=== PATIENT | male | born 1970 | race Caucasian/White ===

== ENCOUNTER 2016-07-07 09:27 | Emergency (ER) | payer OTHER ==
[~2016-07-07] VITALS: Ht 177.8 cm; Wt 113.4 kg
[2016-07-07] MEDS ORDERED: IV NS 0.9% 500 ML BAG IV ONE (10:00)
[2016-07-07] MEDS ORDERED: KETOROLAC TROMETHAMINE INJ 30 MG/ML VIAL IV ONE (10:00)
[2016-07-07] MEDS ORDERED: ONDANSETRON HCL/PF 4 MG/2 ML VIAL IVP ONE (10:00)
[2016-07-07] MEDS ORDERED: HYDROMORPHONE INJ 2 MG/ML DISP.SYRIN IV ONE (10:00)
[2016-07-07] MEDS ORDERED: HYDROMORPHONE 1 MG/1 ML DISP.SYRIN ONE (10:02)
[2016-07-07] MEDS ORDERED: ONDANSETRON HCL/PF 4 MG/2 ML VIAL ONE (10:02)
[2016-07-07] MEDS ORDERED: IV NS 0.9% 1,000 ML ONE (10:02)
[2016-07-07] MEDS ORDERED: IV SET PRIMARY PUMP SET 1 EA INFUS.SET MC ONE (10:02)
[2016-07-07] MEDS ORDERED: KETOROLAC TROMETHAMINE 15 MG/ML VIAL ONE (10:02)
[2016-07-07 10:04] LABS: BASOPHILS # (AUTO) 0.1 /CMM (0.0-0.2); BASOPHILS % (AUTO) 0.7 % (0.0-2.0); DIFF TOTAL % 100 %; EOSINOPHILS # (AUTO) 0.1 /CMM (0.0-0.7); EOSINOPHILS % (AUTO) 0.9 % (0.0-6.0); HEMATOCRIT 46 % (39-51); HEMOGLOBIN 15.4 g/dL (13.5-17.5); LYMPHOCYTES # (AUTO) 1.5 /CMM (0.8-4.8); LYMPHOCYTES % (AUTO) 14.2 % (20.0-44.0); MEAN CORPUSCULAR HEMOGLOBIN 29 PG (26.0-33.0); MEAN CORPUSCULAR HGB CONC 34 g/dl (31.0-36.0); MEAN CORPUSCULAR VOLUME 85 fL (80-96); MONOCYTES # (AUTO) 0.5 /CMM (0.1-1.30); MONOCYTES % (AUTO) 4.4 % (2.0-12.0); NEUTROPHILS # (AUTO) 8.4 /CMM (1.8-8.9); NEUTROPHILS % (AUTO) 79.8 % (43.0-81.0); PLATELET COUNT (AUTO) 212 /CMM (150-450); WHITE BLOOD COUNT (AUTO) 10.6 K/uL (4.3-11.0)
[2016-07-07 10:08] LABS: KETONES,URINE Negative (NEGATIVE); LEUKOCYTE ESTERASE ,URINE Negative (NEGATIVE); PH,URINE 8.5 (5.0-8.0)
[2016-07-07 10:11] LABS: ADD UA MICROSCOPIC YES
[2016-07-07 10:14] LABS: CALCIUM, SERUM 9.2 mg/dL (8.5-10.1); CREATININE 1.3 mg/dL (0.6-1.3); POTASSIUM 4.2 mmol/L (3.5-5.1)
[2016-07-07 10:20] LABS: ADD URINE CULTURE NO; WBC,URINE 0-2 /HPF (0-3)
[2016-07-07 11:42] VITALS: BP 120/86
== END 2016-07-07 11:43 | disposition home or self-care (01) ==
LOC: ER 09:29
DX: N23 Unspecified renal colic (principal); J06.9 Acute upper respiratory infection, unspecified
CPT/HCPCS: 36415; 80048; 81001; 85025; 87086; 96361; 96374; 96375; 99284; A4606; J1170; J1885; J2405; J7030; Z7610; 81000-TC

== ENCOUNTER 2016-10-06 10:19 | Emergency (ER) | payer OTHER ==
[~2016-10-06] VITALS: Ht 177.8 cm; Wt 111.6 kg
[2016-10-06 10:34] VITALS: BP 153/81
--- NOTE | 2016-10-06 10:38 | NUR ---
PT REC'D TO ER C/O COUGH FOR 2 DAYS NO FEVER AWAITING EVALUATION BY ER PROVIDER.
[2016-10-06] MEDS ORDERED: BENZONATATE 100 MG CAPSULE PO PRN (11:00)
[2016-10-06] MEDS ORDERED: ALBUTEROL FS 2.5 MG/3 ML VIAL.NEB CONTNEB ONE (11:00)
[2016-10-06] MEDS ORDERED: ALBUTEROL FS 2.5 MG/3 ML VIAL.NEB ONE ×2 (11:03→11:16)
--- NOTE | 2016-10-06 11:10 | NUR ---
PT GIVEN BREATHING TX STTED FEELING BETTR VSS
--- NOTE | 2016-10-06 11:46 | NUR ---
GIVEN MEDS PER MD VSS PT. VERBALIZED UNDERSTANDING OF AFTERCARE INSTRUCTIONS.Patient discharged to home in stable condition. Written and verbal after care instructions given. Patient verbalizes understanding of instruction.
== END 2016-10-06 11:51 | disposition home or self-care (01) ==
LOC: ER 10:23
DX: J40 Bronchitis, not specified as acute or chronic (principal); J06.9 Acute upper respiratory infection, unspecified
CPT/HCPCS: A4606; Z7610

== ENCOUNTER 2017-11-04 21:45 | Emergency (ER) | payer OTHER ==
[~2017-11-04] VITALS: Ht 177.8 cm; Wt 115.2 kg
[2017-11-04 21:53] VITALS: BP 129/78
--- NOTE | 2017-11-04 21:55 | NUR ---
PT BIB SELF COMPLAINING OF RT SIDE RIB PAIN. "I WAS PLAYING SOCCER ON FRIDAY AND COLLIDED WITH SOMEONE." POSITIVE WHEEZING UPPER LOBES B/L. 7/10 PAIN ON INSPIRATION AND WITH PALPATION. NO BRUISING OR TRAUMA NOTED. NO S/S SOB. NAD. VSS. STABLE CONDITION. AWAITING MD MURILLO.
--- NOTE | 2017-11-04 21:55 | NUR ---
Note undone in EDM - 11/04/17 at 2246 by JORGE PT BIB SELF COMPLAINING OF RT SIDE RIB PAIN. "I WAS PLAYING SOCCER ON FRIDAY AND COLLIDED WITH SOMEONE." LUNGS CLEAR B/L. 7/10 PAIN ON INSPIRATION AND WITH PALPATION. NO BRUISING OR TRAUMA NOTED. NO S/S SOB. NAD. VSS. STABLE CONDITION. AWAITING MD MURILLO.
[2017-11-04] MEDS ORDERED: predniSONE 20 MG TABLET ONE (22:53)
--- NOTE | 2017-11-04 22:54 | NUR ---
PT BROUGHT TO CT
[2017-11-04] MEDS ORDERED: ALBUTEROL FS 2.5 MG/3 ML VIAL.NEB NEB ONE (23:00)
[2017-11-04] MEDS ORDERED: predniSONE 20 MG TABLET PO ONE (23:00)
[2017-11-04] MEDS ORDERED: IPRATROPIUM NEB FS 0.5 MG/2.5 ML AMPUL.NEB NEB ONE (23:00)
[2017-11-04] MEDS ORDERED: IPRATROPIUM NEB FS 0.5 MG/2.5 ML AMPUL.NEB ONE (23:34)
[2017-11-04] MEDS ORDERED: ALBUTEROL FS 2.5 MG/3 ML VIAL.NEB ONE (23:34)
== END 2017-11-05 00:38 | disposition home or self-care (01) ==
LOC: ER 21:46
DX: S20.211A Contusion of right front wall of thorax, initial encounter (principal); J20.9 Acute bronchitis, unspecified; Z87.01 Personal history of pneumonia (recurrent); W51.XXXA Accidental striking against or bumped into by another person, initial encounter; Y93.66 Activity, soccer; Y92.39 Other specified sports and athletic area as the place of occurrence of the external cause; Y99.8 Other external cause status
CPT/HCPCS: 71100-TC; A4606; Z7610

== ENCOUNTER 2017-11-15 15:51 | Emergency (ER) | payer OTHER ==
[~2017-11-15] VITALS: Ht 177.8 cm; Wt 113.4 kg
[2017-11-15 16:13] VITALS: BP 151/65
== END 2017-11-15 17:48 | disposition home or self-care (01) ==
LOC: ER 15:52
DX: S16.1XXA Strain of muscle, fascia and tendon at neck level, initial encounter (principal); S39.012A Strain of muscle, fascia and tendon of lower back, initial encounter; Z87.01 Personal history of pneumonia (recurrent); V49.49XA Driver injured in collision with other motor vehicles in traffic accident, initial encounter; Y93.89 Activity, other specified; Y92.413 State road as the place of occurrence of the external cause; Y99.8 Other external cause status
CPT/HCPCS: 72110; 72220; 99284; A4606; Z7610

== ENCOUNTER 2018-03-28 18:12 | Emergency (ER) | payer OTHER ==
[~2018-03-28] VITALS: Ht 177.8 cm; Wt 115.7 kg
--- NOTE | 2018-03-28 18:12 | NUR ---
BIBSELF C/O NAUSEA, VOMITTING X4, STARTED TODAY AT 1400. NO C/O DIZZINESS, RESPIRATIONS EVEN AND UNLABORED, NAD NOTED, VSS, PENDING MD MURILLO
[2018-03-28] MEDS ORDERED: ONDANSETRON HCL/PF 4 MG/2 ML VIAL ONE ×2 (18:39→21:00)
[2018-03-28] MEDS ORDERED: IV NS 0.9% 1,000 ML BAG IV ONE ×2 (19:00→21:00)
[2018-03-28] MEDS ORDERED: ONDANSETRON HCL/PF 4 MG/2 ML VIAL IVP ONE ×2 (19:00→21:00)
[2018-03-28 20:00] LABS: CALCIUM, SERUM 8.9 mg/dL (8.5-10.1); CREATININE 1.2 mg/dL (0.6-1.3); POTASSIUM 4.7 mmol/L (3.5-5.1)
[2018-03-28 20:06] LABS: ALBUMIN 3.7 g/dL (3.4-5.0); BILIRUBIN,DIRECT 0.1 mg/dL (0.0-0.2); BILIRUBIN,TOTAL 0.7 mg/dL (0.2-1.0); TOTAL PROTEIN, SERUM 7.2 g/dL (6.4-8.2)
[2018-03-28 20:35] LABS: LYMPHOCYTES # (AUTO) 0.6 /CMM (0.8-4.8)
[2018-03-28 20:40] LABS: BASOPHILS % (AUTO) 0.3 % (0.0-2.0); EOSINOPHILS % (AUTO) 0.6 % (0.0-6.0); HEMATOCRIT 45 % (39-51); HEMOGLOBIN 15.6 g/dL (13.5-17.5); LYMPHOCYTES % (AUTO) 5.3 % (20.0-44.0); MEAN CORPUSCULAR HGB CONC 35 g/dl (31.0-36.0); MEAN CORPUSCULAR VOLUME 88 fL (80-96); MONOCYTES # (AUTO) 0.5 /CMM (0.1-1.30); MONOCYTES % (AUTO) 4.3 % (2.0-12.0); NEUTROPHILS # (AUTO) 9.6 /CMM (1.8-8.9); NEUTROPHILS % (AUTO) 89.5 % (43.0-81.0); PLATELET COUNT (AUTO) 191 /CMM (150-450); RED BLOOD CELL COUNT(AUTO) 5.11 MIL/uL (4.5-6.0); WHITE BLOOD COUNT (AUTO) 10.8 K/uL (4.3-11.0)
[2018-03-28 21:04] LABS: BAND % (MANUAL) 3 % (0.0-5.0); LYMPHOCYTES % (MANUAL) 3 % (16-48); MONOCYTES % (MANUAL) 3 % (0-11.0); NEUTROPHILS % (MANUAL) 88 (42-76); REACTIVE LYMPHOCYTES 3 % (0-0)
--- NOTE | 2018-03-28 21:10 | NUR ---
PT STILL COMPLAINING OF NAUSEA AFTER 1 DOSE OF ZOFRAN, CHRISTEL PHILIP AWARE
[2018-03-28 21:18] LABS: APPEARANCE,URINE CLEAR (CLEAR); BILIRUBIN,URINE NEGATIVE (NEGATIVE); BLOOD, URINE 2+ Ery/uL (NEGATIVE); COLOR,URINE YELLOW (YELLOW); KETONES,URINE NEGATIVE (NEGATIVE); LEUKOCYTE ESTERASE ,URINE NEGATIVE (NEGATIVE); NITRITE, URINE NEGATIVE (NEGATIVE); PROTEIN,URINE NEGATIVE (NEGATIVE); UGLUCOSE NEGATIVE (NEGATIVE); UROBILINOGEN,URINE 0.2 EU/dL (0.2)
[2018-03-28 21:27] LABS: BACTERIA,URINE 1+ /HPF (None Seen); SQUAMOUS EPITHELIAL CELL,UR 0-2 /HPF (None Seen); WBC,URINE 0-2 /HPF (0-3)
--- NOTE | 2018-03-28 22:00 | NUR ---
SPOKE TO MARIAN HOMICIDE INVESTIGATOR REGARDING PATIENTS DISPOSITION
[2018-03-28 22:34] LABS: THYROID STIMULATING HORMONE 0.757 uIU/mL (0.358-3.74)
[2018-03-28 22:40] VITALS: BP 152/78
--- NOTE | 2018-03-28 23:37 | NUR ---
Patient is resting comfortably in bed with eyes closed. Easily aroused. VSS
--- NOTE | 2018-03-28 23:59 | NUR ---
Pt accepted to [facility] bed 308-B by Esvin KEARNEY. # for report [phone].
--- NOTE | 2018-03-29 01:00 | NUR ---
[facility] at bedside for transport to [facility] [place].
== END 2018-03-29 01:19 | disposition short-term general hospital (02) ==
LOC: ER 18:13
DX: G43.A1 Cyclical vomiting, in migraine, intractable (principal); R00.0 Tachycardia, unspecified
CPT/HCPCS: 36415; 70450-TC; 71045-TC; 80048-TC; 80076-TC; 80305; 81000-TC; 83690-TC; 84439-TC; 84443-TC; 84484-TC; 85025-TC; 85378-TC; A4606; J2405; J7030; Z7610

== ENCOUNTER 2018-05-03 16:59 | Emergency (ER) | payer OTHER ==
[~2018-05-03] VITALS: Ht 177.8 cm; Wt 122.0 kg
--- NOTE | 2018-05-03 17:10 | NUR ---
BIB SELF W C/O WHEEZING X 1 DAY , SOB 3-4 DAYS STATED HAVE SYMPTOMS ON AND OFF FOR A MONTH , WORST THIS PAST FEW DAYS , ANXIOUS. TO ER BED 9, HOOKED TO MONITOR, AWAITING MD MURILLO
--- NOTE | 2018-05-03 17:12 | NUR ---
DR SEALS AT BEDSIDE
[2018-05-03] MEDS ORDERED: ALBUTEROL FS 2.5 MG/3 ML VIAL.NEB ONE (17:27)
[2018-05-03] MEDS ORDERED: methylPREDNISolone SOD SUCC 125 MG/2ML VIAL ONE (17:28)
[2018-05-03] MEDS ORDERED: IPRATROPIUM NEB FS 0.5 MG/2.5 ML AMPUL.NEB ONE (17:28)
[2018-05-03 17:30] LABS: BASOPHILS # (AUTO) 0.1 /CMM (0.0-0.2); BASOPHILS % (AUTO) 1.3 % (0.0-2.0); EOSINOPHILS % (AUTO) 1.3 % (0.0-6.0); HEMATOCRIT 46 % (39-51); HEMOGLOBIN 16.1 g/dL (13.5-17.5); LYMPHOCYTES # (AUTO) 2.2 /CMM (0.8-4.8); LYMPHOCYTES % (AUTO) 22.4 % (20.0-44.0); MEAN CORPUSCULAR HGB CONC 35 g/dl (31.0-36.0); MEAN CORPUSCULAR VOLUME 87 fL (80-96); MONOCYTES # (AUTO) 0.4 /CMM (0.1-1.30); MONOCYTES % (AUTO) 4.2 % (2.0-12.0); NEUTROPHILS # (AUTO) 6.8 /CMM (1.8-8.9); NEUTROPHILS % (AUTO) 70.8 % (43.0-81.0); PLATELET COUNT (AUTO) 239 /CMM (150-450); RED BLOOD CELL COUNT(AUTO) 5.24 MIL/uL (4.5-6.0); WHITE BLOOD COUNT (AUTO) 9.7 K/uL (4.3-11.0)
[2018-05-03] MEDS ORDERED: IPRATROPIUM NEB FS 0.5 MG/2.5 ML AMPUL.NEB NEB ONE (17:30)
[2018-05-03] MEDS ORDERED: methylPREDNISolone SOD SUCC 125 MG/2ML VIAL IV ONE (17:30)
[2018-05-03] MEDS ORDERED: ALBUTEROL FS 2.5 MG/3 ML VIAL.NEB CONTNEB ONE (17:30)
[2018-05-03 17:46] LABS: CALCIUM, SERUM 9.4 mg/dL (8.5-10.1); CARBON DIOXIDE 27 mmol/L (21-32); CHLORIDE 103 mmol/L (98-107); CREATININE 1.3 mg/dL (0.6-1.3); GLUCOSE 131 mg/dL (74-106); POTASSIUM 4.7 mmol/L (3.5-5.1); SODIUM SERUM 141 mmol/L (136-145); UREA NITROGEN, BLOOD 18 mg/dL (7-18)
[2018-05-03 17:51] LABS: ALANINE AMINOTRANSFERASE 90 U/L (12-78); ALBUMIN 4.1 g/dL (3.4-5.0); ALKALINE PHOSPHATASE 67 U/L (46-116); BILIRUBIN,DIRECT 0.1 mg/dL (0.0-0.2); BILIRUBIN,TOTAL 0.5 mg/dL (0.2-1.0); TOTAL PROTEIN, SERUM 7.6 g/dL (6.4-8.2)
[2018-05-03 18:18] LABS: ASPARTATE AMINOTRANSFERASE 51 U/L (15-37)
[2018-05-03] MEDS ORDERED: IV NS 0.9% 1,000 ML BAG IV ONE ×2 (18:30)
[2018-05-03] MEDS ORDERED: AZITHROMYCIN 500 MG in IV D5W 250 ML IV ONE (18:30)
[2018-05-03] MEDS ORDERED: CEFTRIAXONE 1 G in IV D5W 50 ML IV ONE (18:30)
[2018-05-03] MEDS ORDERED: IV NS 0.9% 250 ML BAG IV ONE (18:30)
[2018-05-03 18:57] LABS: APPEARANCE,URINE Cloudy (CLEAR); BILIRUBIN,URINE SMALL (NEGATIVE); BLOOD, URINE Trace-intact Ery/uL (NEGATIVE); COLOR,URINE Yellow (YELLOW); KETONES,URINE Negative (NEGATIVE); LEUKOCYTE ESTERASE ,URINE Large (NEGATIVE); NITRITE, URINE Negative (NEGATIVE); PROTEIN,URINE >=300 mg/dl (NEGATIVE); UGLUCOSE Negative (NEGATIVE); UROBILINOGEN,URINE 0.2 EU/dL (0.2)
[2018-05-03 19:01] LABS: PH,URINE >9.0 (5.0-8.0)
--- NOTE | 2018-05-03 19:05 | NUR ---
MARIAN DOCTOR ON PHONE WITH DR SEALS.
[2018-05-03 19:25] LABS: BACTERIA,URINE 4+ /HPF (None Seen); SQUAMOUS EPITHELIAL CELL,UR 0-2 /HPF (None Seen)
--- NOTE | 2018-05-03 19:46 | NUR ---
REPORT GIVEN TO JOMAR FOR DARIELA
[2018-05-03 20:36] VITALS: BP 153/108
--- NOTE | 2018-05-03 21:26 | NUR ---
Called the overseeing case management associate (Geeta: [phone]) at [facility] for an update on the transfer for this pt and she told me that they are still waiting on a bed assignment for this pt. Once the bed assignment is obtained, they will give us a call back.
--- NOTE | 2018-05-03 22:05 | NUR ---
SPOKE WITH MARIAN DEMAND PLANNER JOSHUA REGARDING PT SIGNING AMA PAPERWORK
--- NOTE | 2018-05-03 22:49 | NUR ---
Patient does not wish to proceed with medical care recommended by Dr. SEALS. Patient given information related to possible complications, up to and including , which could occur as a result of leaving the hospital at this time. Patient verbalizes understanding of risks involved due to leaving against medical advice. Patient has signed AMA form.
== END 2018-05-03 22:54 | disposition left against medical advice (07) ==
LOC: ER 17:01
DX: A41.9 Sepsis, unspecified organism (principal); N39.0 Urinary tract infection, site not specified; J45.909 Unspecified asthma, uncomplicated; B27.90 Infectious mononucleosis, unspecified without complication; E66.9 Obesity, unspecified; R94.31 Abnormal electrocardiogram [ECG] [EKG]; R06.82 Tachypnea, not elsewhere classified
CPT/HCPCS: 36415; 71045-TC; 80048-TC; 80076-TC; 81000-TC; 83605-TC; 84484-TC; 85025-TC; 85378-TC; 85730-TC; 87040-TC; 87086-TC; 87186-TC; J0456; J0696; J2930; J7030; J7050; J7060

== ENCOUNTER 2019-03-26 15:51 | Emergency (ER) | payer OTHER ==
[~2019-03-26] VITALS: Ht 177.8 cm; Wt 132.0 kg
[2019-03-26 15:55] VITALS: BP 164/110
--- NOTE | 2019-03-26 16:28 | NUR ---
Patient discharged to home in stable condition. Written and verbal after care instructions given. Patient verbalizes understanding of instruction.
== END 2019-03-26 16:28 | disposition home or self-care (01) ==
LOC: ER 15:53
DX: J32.9 Chronic sinusitis, unspecified (principal); R20.2 Paresthesia of skin; J44.9 Chronic obstructive pulmonary disease, unspecified

== ENCOUNTER 2019-04-12 09:20 | Emergency (ER) | payer OTHER ==
[~2019-04-12] VITALS: Ht 177.8 cm; Wt 131.5 kg
--- NOTE | 2019-04-12 09:30 | NUR ---
SEEN BY DR. ZAMORA AND EVALUATED
[2019-04-12 10:26] VITALS: BP 143/84
--- NOTE | 2019-04-12 10:26 | NUR ---
Patient discharged to home in stable condition. Prescription provided. Written and verbal after care instructions given. Patient verbalizes understanding of instruction.
== END 2019-04-12 10:27 | disposition home or self-care (01) ==
LOC: ER 09:21
DX: J32.9 Chronic sinusitis, unspecified (principal); J45.909 Unspecified asthma, uncomplicated
CPT/HCPCS: 71045-TC

== ENCOUNTER 2019-05-25 22:45 | Emergency (ER) | payer OTHER ==
[~2019-05-25] VITALS: Ht 177.8 cm; Wt 132.9 kg
[2019-05-25] MEDS ORDERED: MORPHINE SULFATE INJ 4 MG/ML DISP.SYRIN ONE (23:29)
[2019-05-25] MEDS ORDERED: ONDANSETRON HCL/PF 4 MG/2 ML VIAL ONE (23:29)
[2019-05-25] MEDS ORDERED: MORPHINE SULFATE INJ 2 MG/ML DISP.SYRIN IV ONE (23:30)
[2019-05-25] MEDS ORDERED: ONDANSETRON HCL/PF 4 MG/2 ML VIAL IVP ONE (23:30)
[2019-05-25] MEDS ORDERED: IV NS 0.9% 1,000 ML BAG IV ONE (23:30)
--- NOTE | 2019-05-25 23:30 | NUR ---
PT PRESENTED TO THE ER WITH A C/O BACK PAIN W/ NAUSEA AND VOMITTING. PT AMBULATED TO THE BATHROOM AND A URINE SAMPLE WAS OBTAINED. PT AMBULATED TO ER 6 WITH A STEADY GAIT. PT IS C/O FEELING NAUSEATED.
[2019-05-25 23:42] LABS: BASOPHILS # (AUTO) 0.1 /CMM (0.0-0.2); EOSINOPHILS % (AUTO) 0.6 % (0.0-6.0); HEMATOCRIT 43 % (39-51); HEMOGLOBIN 14.3 g/dL (13.5-17.5); LYMPHOCYTES # (AUTO) 3.4 /CMM (0.8-4.8); LYMPHOCYTES % (AUTO) 30.5 % (20.0-44.0); MEAN CORPUSCULAR HGB CONC 34 g/dl (31.0-36.0); MEAN CORPUSCULAR VOLUME 86 fL (80-96); MONOCYTES # (AUTO) 0.7 /CMM (0.1-1.30); MONOCYTES % (AUTO) 6.3 % (2.0-12.0); NEUTROPHILS # (AUTO) 6.9 /CMM (1.8-8.9); NEUTROPHILS % (AUTO) 61.6 % (43.0-81.0); PLATELET COUNT (AUTO) 249 /CMM (150-450); RED BLOOD CELL COUNT(AUTO) 4.94 MIL/uL (4.5-6.0); WHITE BLOOD COUNT (AUTO) 11.2 K/uL (4.3-11.0)
[2019-05-25 23:45] LABS: APPEARANCE,URINE Clear (CLEAR); BILIRUBIN,URINE Negative (NEGATIVE); BLOOD, URINE Large Ery/uL (NEGATIVE); COLOR,URINE Yellow (YELLOW); KETONES,URINE Negative (NEGATIVE); LEUKOCYTE ESTERASE ,URINE Negative (NEGATIVE); NITRITE, URINE Negative (NEGATIVE); PROTEIN,URINE 30 mg/dl (NEGATIVE); UGLUCOSE Negative (NEGATIVE); UROBILINOGEN,URINE 0.2 EU/dL (0.2)
[2019-05-25 23:49] LABS: CREATININE 1.2 mg/dL (0.6-1.3); POTASSIUM 4.6 mmol/L (3.5-5.1)
[2019-05-25 23:55] LABS: ALBUMIN 3.8 g/dL (3.4-5.0); BILIRUBIN,TOTAL 0.3 mg/dL (0.2-1.0); TOTAL PROTEIN, SERUM 7.8 g/dL (6.4-8.2)
--- NOTE | 2019-05-25 23:57 | NUR ---
PT RETURNED FROM CT.
[2019-05-26] MEDS ORDERED: KETOROLAC TROMETHAMINE INJ 30 MG/ML VIAL ONE
--- NOTE | 2019-05-26 00:03 | NUR ---
TORADOL 30MG GIVEN IVP LAC 18G PER MD ORDER
[2019-05-26] MEDS ORDERED: KETOROLAC TROMETHAMINE INJ 30 MG/ML VIAL IV ONE (00:30)
[2019-05-26 00:39] LABS: BACTERIA,URINE Few /HPF (None Seen); RBC,URINE TOO NUMEROUS TO COUN /HPF (0-2); SQUAMOUS EPITHELIAL CELL,UR Rare /HPF (None Seen)
[2019-05-26 00:40] LABS: MUCUS,URINE Few /LPF (None Seen)
[2019-05-26 01:21] VITALS: BP 128/87
== END 2019-05-26 01:22 | disposition home or self-care (01) ==
LOC: ER 22:47
DX: N20.0 Calculus of kidney (principal); R11.2 Nausea with vomiting, unspecified; Z87.01 Personal history of pneumonia (recurrent)
CPT/HCPCS: 36415; 74176; 80048; 80076; 81001; 83690; 85025; 87086; 96361; 96374; 96375 ×2; 99284; J1885; J2270; J2405; J7030; 81000-TC

== ENCOUNTER 2021-03-06 09:43 | Emergency (ER) | payer OTHER ==
[~2021-03-06] VITALS: Ht 177.8 cm; Wt 136.1 kg
--- NOTE | 2021-03-06 09:50 | NUR ---
PT CAME TO ER C/O L FLANK PAIN X THIS MORNING. PAIN RATED 8/10. HX OF KIDNEY STONE. +NAUSEA, +DIAPHORESIS. ATTEMPTS TO VOMIT BUT NOTHING EXPELLS. DELAYED URINATION. DENIES FEVER, BLOOD IN URINE. A&OX4, AMBULATORY, SKIN IS WARM AND DRY, PULSES 2+ BILATERALLY, ON MONITOR, BP 159/103, V/S OTHERWISE STABLE.
[2021-03-06] MEDS ORDERED: KETOROLAC TROMETHAMINE INJ 30 MG/ML VIAL IV ONE (10:00)
[2021-03-06] MEDS ORDERED: IV NS 0.9% 1,000 ML BAG IV ONE (10:00)
[2021-03-06] MEDS ORDERED: ONDANSETRON HCL/PF 4 MG/2 ML VIAL IVP ONE (10:00)
[2021-03-06] MEDS ORDERED: MORPHINE SULFATE INJ 2 MG/ML DISP.SYRIN IV ONE (10:00)
[2021-03-06] MEDS ORDERED: MORPHINE SULFATE INJ 4 MG/ML DISP.SYRIN ONE (10:01)
[2021-03-06] MEDS ORDERED: ONDANSETRON HCL/PF 4 MG/2 ML VIAL ONE (10:01)
[2021-03-06] MEDS ORDERED: KETOROLAC TROMETHAMINE INJ 30 MG/ML VIAL ONE (10:02)
--- NOTE | 2021-03-06 10:05 | NUR ---
URINE COLLECTED AND SENT TO LAB
[2021-03-06 10:10] LABS: BILIRUBIN,URINE Negative (NEGATIVE); COLOR,URINE DARK YELLOW (YELLOW); LEUKOCYTE ESTERASE ,URINE Negative (NEGATIVE); NITRITE, URINE Negative (NEGATIVE); PH,URINE 5.5 (5.0-8.0); PROTEIN,URINE 30 mg/dl (NEGATIVE); UGLUCOSE Negative (NEGATIVE); UROBILINOGEN,URINE 0.2 EU/dL (0.2)
[2021-03-06 10:22] LABS: BACTERIA,URINE Few /HPF (None Seen); SQUAMOUS EPITHELIAL CELL,UR Rare /HPF (None Seen); WBC,URINE 0-2 /HPF (0-3)
--- NOTE | 2021-03-06 10:22 | NUR ---
BLOOD SAMPLE OBTAINED AND SENT TO LAB
[2021-03-06 10:23] LABS: URINE AMORPHOUS URATE Moderate /HPF (None Seen)
[2021-03-06 10:28] LABS: BASOPHILS # (AUTO) 0.1 K/uL (0.0-0.2); BASOPHILS % (AUTO) 0.9 % (0.0-2.0); EOSINOPHILS % (AUTO) 0.5 % (0.0-6.0); HEMATOCRIT 45 % (39-51); LYMPHOCYTES # (AUTO) 1.7 K/uL (0.8-4.8); LYMPHOCYTES % (AUTO) 19.1 % (20.0-44.0); MEAN CORPUSCULAR HGB CONC 34 g/dl (31.0-36.0); MEAN CORPUSCULAR VOLUME 87 fL (80-96); MONOCYTES # (AUTO) 0.4 K/uL (0.1-1.30); MONOCYTES % (AUTO) 4.9 % (2.0-12.0); NEUTROPHILS # (AUTO) 6.7 K/uL (1.8-8.9); NEUTROPHILS % (AUTO) 74.6 % (43.0-81.0); PLATELET COUNT (AUTO) 230 K/uL (150-450); RED BLOOD CELL COUNT(AUTO) 5.11 MIL/uL (4.5-6.0)
[2021-03-06 10:31] LABS: CALCIUM, SERUM 9.2 mg/dL (8.5-10.1); CREATININE 1.2 mg/dL (0.6-1.3); POTASSIUM 4.8 mmol/L (3.5-5.1)
[2021-03-06 10:37] LABS: ALBUMIN 4.1 g/dL (3.4-5.0); BILIRUBIN,DIRECT 0.1 mg/dL (0.0-0.2); BILIRUBIN,TOTAL 0.4 mg/dL (0.2-1.0); TOTAL PROTEIN, SERUM 7.9 g/dL (6.4-8.2)
--- NOTE | 2021-03-06 10:43 | NUR ---
PT TAKEN TO RADIOLOGY
--- NOTE | 2021-03-06 10:48 | NUR ---
PT BACK FROM RADIOLOGY
[2021-03-06] MEDS ORDERED: TAMS-12 PO (11:41)
[2021-03-06] MEDS ORDERED: HYDR-3972 PO (11:41)
[2021-03-06] MEDS ORDERED: IBUP-1957 PO (11:41)
[2021-03-06] MEDS ORDERED: FLUC200T PO (11:44)
--- NOTE | 2021-03-06 12:14 | NUR ---
Patient discharged to home in stable condition. Written and verbal after care instructions given. Patient verbalizes understanding of instruction.
--- NOTE | 2021-03-06 12:14 | NUR ---
IV removed. Catheter intact and site benign. Pressure and 4x4 applied to site. No bleeding noted.
[2021-03-06 12:16] VITALS: BP 154/105
== END 2021-03-06 12:16 | disposition home or self-care (01) ==
LOC: ER 09:46
DX: N20.0 Calculus of kidney (principal)
CPT/HCPCS: 36415; 71045; 74176; 80048; 80076; 81001; 85025; 96361; 96374; 96375; 99285; J1885; J2270; J2405; J7030

== ENCOUNTER 2024-04-24 17:00 | Emergency (ER) | payer MEDICAID, OTHER ==
[~2024-04-24] VITALS: Ht 177.8 cm; Wt 124.3 kg
[~2024-04-24 17:00] MED LIST: FLUC200T PO; HYDR-3972 PO; IBUP-1957 PO; TAMS-12 PO
[2024-04-24] MEDS ORDERED: methylPREDNISolone SOD SUCC 125 MG/2ML VIAL ONE (17:27)
[2024-04-24] MEDS: methylPREDNISolone SOD SUCC 125 MG/2ML VIAL IV ONE (17:30)
[2024-04-24] MEDS ORDERED: ALBUTEROL FS 2.5 MG/3 ML VIAL.NEB ONE (17:33)
[2024-04-24] MEDS: ALBUTEROL FS 2.5 MG/0.5 ML VIAL.NEB NEB ONE (17:39)
[2024-04-24 17:40] VITALS: O2SAT 100
[2024-04-24 17:42] LABS: BASOPHILS # (AUTO) 0.1 K/uL (0.0-0.2); BASOPHILS % (AUTO) 0.8 % (0.0-2.0); EOSINOPHILS # (AUTO) 0.1 K/uL (0.0-0.7); EOSINOPHILS % (AUTO) 1.6 % (0.0-6.0); HEMATOCRIT 43 % (39-51); HEMOGLOBIN 14.7 g/dL (13.5-17.5); LYMPHOCYTES # (AUTO) 2.6 K/uL (0.8-4.8); LYMPHOCYTES % (AUTO) 36.2 % (20.0-44.0); MEAN CORPUSCULAR HEMOGLOBIN 29 PG (26.0-33.0); MEAN CORPUSCULAR HGB CONC 35 g/dl (31.0-36.0); MEAN CORPUSCULAR VOLUME 85 fL (80-96); MONOCYTES # (AUTO) 0.4 K/uL (0.1-1.30); MONOCYTES % (AUTO) 5.5 % (2.0-12.0); NEUTROPHILS # (AUTO) 3.9 K/uL (1.8-8.9); NEUTROPHILS % (AUTO) 55.9 % (43.0-81.0); PLATELET COUNT (AUTO) 200 K/uL (150-450); RED BLOOD CELL COUNT(AUTO) 4.99 MIL/uL (4.5-6.0); WHITE BLOOD COUNT (AUTO) 7.1 K/uL (4.3-11.0)
[2024-04-24 17:48] VITALS: O2SAT 99
[2024-04-24 17:48] LABS: CALCIUM, SERUM 8.9 mg/dL (8.5-10.1); CREATININE 0.9 mg/dL (0.6-1.3)
[2024-04-24 17:49] VITALS: O2SAT 99
[2024-04-24 17:59] VITALS: O2SAT 100
[2024-04-24] MEDS ORDERED: FURO-144 PO (22:03)
[2024-04-24] MEDS ORDERED: BENZ-13 PO (22:03)
[2024-04-24] MEDS ORDERED: PRED20TA PO (22:07)
[2024-04-24] MEDS ORDERED: FUROSEMIDE 40 MG/4 ML VIAL ONE (22:08)
[2024-04-24] MEDS: FUROSEMIDE 40 MG/4 ML VIAL IV ONE (22:09)
[2024-04-24 22:41] VITALS: BP 134/80; TEMP 98.2; O2SAT 96
== END 2024-04-24 22:42 | disposition home or self-care (01) ==
LOC: ER 17:00
DX: R06.02 Shortness of breath (principal); R05.9 Cough, unspecified; Z20.822 Contact with and (suspected) exposure to COVID-19; Z79.1 Long term (current) use of non-steroidal anti-inflammatories (NSAID)
CPT/HCPCS: 99285; 96374; 71045; 96375; 87426; 93005 ×2; 87804 ×2; 85025; 80048; 85378; 36415; 83880; 94640 ×2; J1940; J2919

== ENCOUNTER 2024-05-11 10:08 | Emergency (ER) | payer MEDICAID ==
[~2024-05-11] VITALS: Ht 177.8 cm; Wt 124.7 kg
[~2024-05-11 10:08] MED LIST changes: +BENZ-13 PO; +FURO-144 PO; +PRED20TA PO
[2024-05-11 11:00] LABS: BASOPHILS # (AUTO) 0.1 K/uL (0.0-0.2); BASOPHILS % (AUTO) 1.7 % (0.0-2.0); EOSINOPHILS # (AUTO) 0.2 K/uL (0.0-0.7); EOSINOPHILS % (AUTO) 2.6 % (0.0-6.0); HEMATOCRIT 41 % (39-51); HEMOGLOBIN 14.4 g/dL (13.5-17.5); LYMPHOCYTES % (AUTO) 29.6 % (20.0-44.0); MEAN CORPUSCULAR HEMOGLOBIN 30 PG (26.0-33.0); MEAN CORPUSCULAR HGB CONC 35 g/dl (31.0-36.0); MEAN CORPUSCULAR VOLUME 86 fL (80-96); MONOCYTES # (AUTO) 0.4 K/uL (0.1-1.30); MONOCYTES % (AUTO) 6.3 % (2.0-12.0); NEUTROPHILS % (AUTO) 59.8 % (43.0-81.0); PLATELET COUNT (AUTO) 173 K/uL (150-450); RED BLOOD CELL COUNT(AUTO) 4.78 MIL/uL (4.5-6.0); RED CELL DISTRIBUTION WIDTH 13.7 % (11.5-15.0); WHITE BLOOD COUNT (AUTO) 6.7 K/uL (4.3-11.0)
[2024-05-11] MEDS ORDERED: methylPREDNISolone SOD SUCC 125 MG/2ML VIAL ONE (11:19)
[2024-05-11] MEDS: methylPREDNISolone SOD SUCC 125 MG/2ML VIAL IV ONE (11:25)
[2024-05-11] MEDS: IPRATROPIUM NEB FS 0.5 MG/2.5 ML AMPUL.NEB NEB ONE (11:26)
[2024-05-11] MEDS: ALBUTEROL FS 2.5 MG/3 ML VIAL.NEB CONTNEB ONE (11:26)
[2024-05-11] MEDS ORDERED: IPRATROPIUM NEB FS 0.5 MG/2.5 ML AMPUL.NEB ONE (11:28)
[2024-05-11] MEDS ORDERED: ALBUTEROL FS 2.5 MG/3 ML VIAL.NEB ONE (11:28)
[2024-05-11 11:34] VITALS: O2SAT 96
[2024-05-11 11:36] LABS: CALCIUM, SERUM 8.4 mg/dL (8.5-10.1); CARBON DIOXIDE 24 mmol/L (21-32); CHLORIDE 106 mmol/L (98-107); CREATININE 0.9 mg/dL (0.6-1.3); GLUCOSE 142 mg/dL (74-106); POTASSIUM 4.6 mmol/L (3.5-5.1); SODIUM SERUM 140 mmol/L (136-145); UREA NITROGEN, BLOOD 14 mg/dL (7-18)
[2024-05-11 11:52] VITALS: O2SAT 97
[2024-05-11] MEDS ORDERED: BENZ-13 PO (12:06)
[2024-05-11] MEDS ORDERED: ALBU18HF2 INH (12:06)
[2024-05-11] MEDS ORDERED: PRED50TA PO (12:06)
[2024-05-11 12:35] LABS: ALANINE AMINOTRANSFERASE 53 U/L (12-78); ALBUMIN 3.3 g/dL (3.4-5.0); ALKALINE PHOSPHATASE 64 U/L (46-116); BILIRUBIN,TOTAL 0.3 mg/dL (0.2-1.0); NT-PRO BNP 23 pg/mL (0-125)
[2024-05-11 12:36] LABS: TOTAL PROTEIN, SERUM 7.1 g/dL (6.4-8.2)
[2024-05-11 12:38] VITALS: BP 139/90; TEMP 98.4; O2SAT 99
[2024-05-11 13:38] LABS: ASPARTATE AMINOTRANSFERASE < 15 U/L (15-37)
== END 2024-05-11 12:41 | disposition home or self-care (01) ==
LOC: ER 10:14
DX: R05.9 Cough, unspecified (principal); R06.02 Shortness of breath; J45.909 Unspecified asthma, uncomplicated; Z79.1 Long term (current) use of non-steroidal anti-inflammatories (NSAID); Z79.52 Long term (current) use of systemic steroids; Z79.899 Other long term (current) drug therapy
CPT/HCPCS: 99285; 96374; 71045; 93005; 85025; 80048; 80076; 84484; 83880; 94640; J2919; 36415